=== PATIENT | male | born 1995 | race Caucasian/White ===

== ENCOUNTER 2018-11-26 02:53 | Emergency (ER) | payer SELFPAY ==
[2018-11-26] MEDS ORDERED: [UNRECOGNIZED DRUG - OTHER] PO (03:12)
--- NOTE | 2018-11-26 03:12 | ER Report ---
History and Physical Time Seen By MD: 03:01 HPI/ELIS CHIEF COMPLAINT: Right middle quadrant pain HISTORY OF PRESENT ILLNESS: 23-year-old male complaining of back pain and right middle quadrant pain since heavy lifting yesterday with a belt. Patient describes colicky abdominal pain in the right middle quadrant radiating to his back since onset. Patient denies nausea, vomiting, diarrhea. Patient notes he had some difficulty having a bowel movement yesterday. Patient notes no dysuria, frequency or hematuria. Patient denies history of kidney stones. REVIEW OF SYSTEMS: Respiratory: No cough, no dyspnea. Cardiovascular: No chest pain, no palpitations. Gastrointestinal: As above Musculoskeletal: As above Allergies: Coded Allergies: grass pollen (Verified Allergy, Intermediate, 11/26/18) Uncoded Allergies: DUST (Allergy, Intermediate, 11/26/18) Home Meds Active Scripts Hydrocodone Bit/Acetaminophen (HYDROCODON-ACETAMINOPHEN 5-325) 1 Each Tablet, 1 EACH PO Q4-6H PRN for PAIN, #10 TAKE ONE TABLET BY MOUTH EVERY 4-6 HOURS NEEDED FOR PAIN Prov:FITZ HENDRICKSON DO 11/26/18 Reported Medications [Steal Suplements] No Conflict Check, 3 TAB PO BID 11/26/18 Past Medical/Surgical History Gynecomastia, status post surgery, tonsillectomy Reviewed Nurses Notes: Yes Old Medical Records Reviewed: Yes Constitutional Vital Sign - Last 24 Hours 11/26/18 11/26/18 11/26/18 11/26/18 02:59 03:08 03:23 03:30 Temp 98.5 Pulse 122 119 115 Resp 16 B/P (MAP) 174/80 144/73 (96) Pulse Ox 90 88 88 O2 Delivery Room Air 11/26/18 11/26/18 03:38 03:43 Pulse 109 101 Pulse Ox 88 88 Physical Exam General Appearance: The patient is alert, has no immediate need for airway protection and no current signs of toxicity. Vital signs stable, afebrile, pulse ox normal Eyes: Pupils equal and round no injection. Respiratory: Chest is non tender, lungs are clear to auscultation. Cardiac: regular rate and rhythm Gastrointestinal: Abdomen is soft and non tender, no masses, bowel sounds hy peractive., No CVA tenderness Musculoskeletal: Neck: Neck is supple and non tender. Back:, No tenderness in the lumbar paraspinous musculature Extremities have full range of motion and are non tender. Skin: No rashes or lesions. DIFFERENTIAL DIAGNOSIS: After history and physical exam differential diagnosis was considered for abdominal pain including but not limited to appendicitis, cholecystitis, gastritis and urinary tract infection. Medical Decision Making Data Points Laboratory Hematology Test 11/26/18 02:57 Urine Color Yellow Urine Clarity Clear Urine pH 5.0 pH (4.8-9.5) Urine Specific [place] 1.016 Urine Protein Negative mg/dL (NEGATIVE) Urine Glucose (UA) Negative mg/dL (NEGATIVE) Urine Ketones 20 mg/dL (NEGATIVE) Urine Blood Negative (NEGATIVE) Urine Nitrite Negative (NEGATIVE) Urine Bilirubin Negative (NEGATIVE) Urine Urobilinogen Negative mg/dL (0.2-1.9) Urine Leukocyte Esterase Negative (NEGATIVE) Urine RBC <1 /HPF (0-2/HPF) Urine WBC <1 /HPF (0-5/HPF) Urine Squamous Epithelial Cells None /LPF (</=FEW) Urine Bacteria Negative /HPF (NONE-FEW) Urine Mucus None /HPF (NONE-FEW) Chemistry Test 11/26/18 02:57 Urine Color Yellow Urine Clarity Clear Urine pH 5.0 pH (4.8-9.5) Urine Specific [place] 1.016 Urine Protein Negative mg/dL (NEGATIVE) Urine Glucose (UA) Negative mg/dL (NEGATIVE) Urine Ketones 20 mg/dL (NEGATIVE) Urine Blood Negative (NEGATIVE) Urine Nitrite Negative (NEGATIVE) Urine Bilirubin Negative (NEGATIVE) Urine Urobilinogen Negative mg/dL (0.2-1.9) Urine Leukocyte Esterase Negative (NEGATIVE) Urine RBC <1 /HPF (0-2/HPF) Urine WBC <1 /HPF (0-5/HPF) Urine Squamous Epithelial Cells None /LPF (</=FEW) Urine Bacteria Negative /HPF (NONE-FEW) Urine Mucus None /HPF (NONE-FEW) Urinalysis Test 11/26/18 02:57 Urine Color Yellow Urine Clarity Clear Urine pH 5.0 pH (4.8-9.5) Urine Specific [place] 1.016 Urine Protein Negative mg/dL (NEGATIVE) Urine Glucose (UA) Negative mg/dL (NEGATIVE) Urine Ketones 20 mg/dL (NEGATIVE) Urine Blood Negative (NEGATIVE) Urine Nitrite Negative (NEGATIVE) Urine Bilirubin Negative (NEGATIVE) Urine Urobilinogen Negative mg/dL (0.2-1.9) Urine Leukocyte Esterase Negative (NEGATIVE) Urine RBC <1 /HPF (0-2/HPF) Urine WBC <1 /HPF (0-5/HPF) Urine Squamous Epithelial Cells None /LPF (</=FEW) Urine Bacteria Negative /HPF (NONE-FEW) Urine Mucus None /HPF (NONE-FEW) ED Course/Re-evaluation ED Course Patient was admitted to an examination room. H&P was done. On clinical examination. Patient admits he was doing heavy deadlifts. The onset of pain in his back and his abdomen. It's likely musculoskeletal in nature. A urinalysis was checked, which is unremarkable. Patient was medicated for pain. He is advised ibuprofen for pain relief. 600 mg 3 times daily. He is given a limited supply of Lortab for temporary pain relief. Patient advised to follow-up with primary care if unimproved in 3-5 days. Decision to Disposition Date: Nov 26, 2018 Decision to Disposition Time: 03:34 Depart Departure Latest Vital Signs Vital Signs Date Time Temp Pulse Resp B/P (MAP) Pulse Ox O2 Delivery O2 Flow Rate FiO2 11/26/18 03:43 101 88 11/26/18 03:30 144/73 (96) 11/26/18 02:59 98.5 16 Room Air Impression: Primary Impression: Abdominal pain Additional Impression: Back pain Condition: Improved Disposition: HOME OR SELF-CARE New Scripts Hydrocodone Bit/Acetaminophen (HYDROCODON-ACETAMINOPHEN 5-325) 1 Each Tablet 1 EACH PO Q4-6H PRN for PAIN, #10 TAKE ONE TABLET BY MOUTH EVERY 4-6 HOURS NEEDED FOR PAIN Prov: FITZ HENDRICKSON DO 11/26/18 Patient Instructions: Abdominal Pain (ED), Clear Liquid Diet (ED) Additional Instructions: Follow clear liquid diet for 24-48 hours. Advance to the brat diet, bananas, rice, applesauce and toast Avoid fatty food, greasy foods, vegetables and dairy for 48 hours Take ibuprofen 200 mg 3 tablets 3 times a day Follow-up with primary care if unimproved in 3-5 days. Problem Qualifiers Primary Impression: Abdominal pain Abdominal location: unspecified location Qualified Codes: R10.9 - Unspecified abdominal pain Additional Impression: Back pain Back pain location: low back pain Chronicity: acute Back pain laterality: right Sciatica presence: without sciatica Qualified Codes: M54.5 - Low back pain FITZ HENDRICKSON DO Nov 26, 2018 03:12
[2018-11-26] MEDS ORDERED: APAP/HYDROCODONE 325/5 TAB PO ONE (03:15)
[2018-11-26 03:30] VITALS: BP 144/73
[2018-11-26] MEDS ORDERED: LOR5/325 PO (03:54)
[2018-11-26] MEDS ORDERED: ACET/HYDROC 5/325MG TH ER ONLY 2 TAB/BOTTLE PO ONE (03:55)
== END 2018-11-26 04:04 | disposition home or self-care (01) ==
LOC: ER 03:24
DX: R10.9 Unspecified abdominal pain (principal); M54.5 Low back pain
CPT/HCPCS: 81001; 99283